=== PATIENT | male | born 1995 | race Caucasian/White ===

== ENCOUNTER → 2018-04-13 | Emergency (ER) | payer SELFPAY ==
[~2018-04-13] VITALS: Ht 175.3 cm; Wt 113.3 kg
[~2018-04-13] MED LIST: BISM-34 PO; DIPH1TAB PO; LOPE2CAP PO; ONDA8TAB14 PO; PROM5SYR2 PO
[2018-04-13 11:22] VITALS: BP 158/97; PULSE 126; RESP 18; Ht 175.3 cm; Wt 113.3 kg
--- NOTE | 2018-04-13 13:09 | ERD ---
ER Documentation Chief Complaint Chief Complaint cough with vomiting x 2 weeks HPI 23-year-old male presents with history of cough and postop posttussive emesis for the past 2 weeks. In addition he states that he has been having diarrhea since he started taking amoxicillin 3 days ago. Amoxicillin was prescribed by another clinic. Patient states he is able to hold down fluids. Patient states that his been having subjective fevers on and off. Patient denies any abdominal pain, hematochezia, hematemesis, recent travel, dysuria, hematuria, lower back pain.. Denies past medical history. Denies allergies. Denies medications. Denies surgeries. Denies alcohol, tobacco, drug use. Up to date on vaccines. ROS All systems reviewed and are negative except as per history of present illness. Medications Home Meds Active Scripts Bismuth Subsalicylate* (Bismuth Subsalicylate*) 262 Mg/15 Ml Oral.susp, 15 ML PO Q6 PRN for DIARRHEA, #4 OZ Prov:NIKKI SENA 04/13/18 Loperamide Hcl* (Imodium*) 2 Mg Capsule, 2 MG PO .AFTER EA LOOSE BM PRN for DIARRHEA, #14 TAB Prov:NIKKI SENA 04/13/18 Ondansetron (Ondansetron Odt) 8 Mg Tab.rapdis, 8 MG PO Q6H PRN for NAUSEA AND/OR VOMITING, #20 TAB Prov:NIKKI SENA 04/13/18 Promethazine HCl/Codeine (Prometh-Codein 6.25-10 mg/5 ml) 5 Ml Syrup, 5 ML PO Q6 for cough, #4 OZ Prov:NIKKI SENA 04/13/18 PMhx/Soc Medical and Surgical Hx: pt denies Medical Hx, pt denies Surgical Hx Hx Alcohol Use: Yes (OCC) Hx Substance Use: No Hx Tobacco Use: No Smoking Status: Former smoker Physical Exam Vitals Vital Signs Date Temp Pulse Resp B/P (MAP) Pulse Ox O2 O2 Flow FiO2 Time Delivery Rate 04/13/18 97.5 126 18 158/97 98 11:22 (117) Physical Exam Const: No acute distress Head: Atraumatic Eyes: Normal Conjunctiva ENT: Normal External Ears, Nose and Mouth. Neck: Full range of motion. No meningismus. Resp: Clear to auscultation bilaterally Cardio: Regular rate and rhythm, no murmurs Abd: Soft, non tender, non distended. Normal bowel sounds. Negative McBurney's tenderness. Negative Hicks sign. Skin: No petechiae or rashes Back: No midline or flank tenderness Ext: No cyanosis, or edema Neur: Awake and alert Psych: Normal Mood and Affect Procedures/MDM 23-year-old male presents with history of cough and postop posttussive emesis for the past 2 weeks. In addition he states that he has been having diarrhea since he started taking amoxicillin 3 days ago. Amoxicillin was prescribed by another clinic. Patient states he is able to hold down fluids. Patient states that his been having subjective fevers on and off. Patient denies any abdominal pain, hematochezia, hematemesis, recent travel. I have low suspicion for appendicitis due to patient history and exam, including normal abdominal exam, lack of McBurney's point tenderness . I have low suspicion for volvulus or obstruction due patient history and exam, including lack of history of biliary emesis and normal physical exam. I have low suspicion of invasive diarrhea due to patient history and exam, including lack of hematochezia. I have low suspicion for dehydration due to moist and pink mucous membranes, patients non lethargic state, and normal cap refill. I have low suspicion of DKA based on patient history and exam. I have low suspicion for adrenal crisis, AAA, mesenteric ischemia, pyelonephritis, cholecystitis, aortic dissection, ectopic, NV, pneumonia, acute pancreatitis, PID, or other emergent causes based on patient history and exam. Most likely diagnosis is viral gastritis. Based on these findings I do not feel that additional labs, imaging. or antibiotics are necessary. Patient discharged with Rx for Imodium, Pepto-Bismol, Zofran, and Phenergan for cough.. Patient was discharged with strict ER precautions. Patient was recommended to follow-up with PMD. All questions answered at discharge. Departure Diagnosis: Primary Impression: Gastroenteritis Condition: Stable Patient Instructions: Vomiting And Diarrhea, Nonspecific (Adult) Referrals: COMMUNITY CLINICS YOU HAVE RECEIVED A MEDICAL SCREENING EXAM AND THE RESULTS INDICATE THAT YOU DO NOT HAVE A CONDITION THAT REQUIRES URGENT TREATMENT IN THE EMERGENCY DEPARTMENT. FURTHER EVALUATION AND TREATMENT OF YOUR CONDITION CAN WAIT UNTIL YOU ARE SEEN IN YOUR DOCTORS OFFICE WITHIN THE NEXT 1-2 DAYS. IT IS YOUR RESPONSIBILITY TO MAKE AN APPOINTMENT FOR [facility]. IF YOU HAVE A PRIMARY DOCTOR --you should call your primary doctor and schedule an appointment IF YOU DO NOT HAVE A PRIMARY DOCTOR YOU CAN CALL OUR PHYSICIAN REFERRAL HOTLINE AT IF YOU CAN NOT AFFORD TO SEE A PHYSICIAN YOU CAN CHOSE FROM THE FOLLOWING [facility] [address] [facility] [address] [facility] [address] [facility] [address] [facility] [address] [facility] [facility] [address] Additional Instructions: FOLLOW UP WITH YOUR PRIMARY CARE PHYSICIAN TOMORROW.Return to this facility if you are not improving as expected. NIKKI SENA Apr 13, 2018 13:09
== END | disposition home or self-care (01) ==
LOC: FTE 11:20
DX: K52.9 Noninfective gastroenteritis and colitis, unspecified (principal); Z87.891 Personal history of nicotine dependence
CPT/HCPCS: 99283